=== PATIENT | female | born 1980 | race Caucasian/White ===

== ENCOUNTER 2018-09-27 11:49 | Day surgery (SDC) | payer OTHER ==
[2018-09-27] VITALS (22 sets, daily range): BP systolic 119–141; BP diastolic 59–84; PULSE 67–97; RESP 14–24; Ht 165.1 cm; Wt 70.1 kg
[~2018-09-27] VITALS: Ht 165.1 cm; Wt 70.1 kg
[~2018-09-27 11:49] MED LIST: CEFAZOLIN 2 GM/50 ML (PMX) 50 ML IVPB SCH; HC1C30 TOP; PRED20TA PO; SOD CHLORIDE 0.9% 1,000 ML IV SCH
[2018-09-27] MEDS ORDERED: BUSP5TAB2 PO (12:04)
--- NOTE | 2018-09-27 13:09 | PREAC ---
Date/Time of Note Date/Time of Note DATE: 09/27/18 TIME: 13:07 Anesthesia Eval and Record Evaluation Time Pre-Procedure Interview DATE: 09/27/18 TIME: 13:07 Age 38 Sex female NPO: 8 hrs Preoperative diagnosis GALLSTONES Planned procedure LAP. POSSIBLE OPEN CHOLECYSTECTOMY Past Medical History Past Medical History: Includes Endo: Diabetes Pulm: Smoking Hx (SMOKES 6-7 CIGS/ DAY LAST SMOKED TODAY) Neuro: Peripheral neuropathy (TAKES GABAPENTIN) Psych: Depression, Anxiety Surgery & Anesthesia Issues Hx of PONV Meds Anticoagulation: No Beta Gucci within 24 hr: No Reason Beta Gucci not given: Pt. not on B-Gucci Reported Medications Buspirone Hcl* (Buspirone Hcl*) 5 Mg Tab, 5 MG PO QHS, TAB 09/27/18 Discontinued Scripts Hydrocortisone* Topical (Hydrocortisone* Topical) 1%-28.35 Gm Cream..g., 1 APPLIC TOP Q6 PRN for ITCHING, #1 TUB Prov:MEGHNA LALA 05/14/15 Prednisone* (Prednisone*) 20 Mg Tab, 40 MG PO DAILY for 4 Days, TAB Prov:MEGHNA LALA 05/14/15 Current Medications Cefazolin Sodium/ Dextrose 50 ml @ 100 mls/hr PREOP IVPB ; Start 09/27/18 at 06:00; Stop 09/27/18 at 17:00 Sodium Chloride 1,000 ml @ 75 mls/hr [id number] IV ; Start 09/27/18 at 06:00; Stop 09/27/18 at 17:00 Meds reviewed: Yes Allergies Coded Allergies: No Known Allergy (Unverified , 09/27/18) Allergies Reviewed: Yes Labs/Studies Labs Reviewed: Reviewed by anesthesiologist test: Negative (SERUM HCG NEGATIVE) Studies: ECG Pre-procedure Exam Airway: Adequate mouth opening, Adequate thyromental dist Mallampati: Mallampati II Teeth: Abnormal (UPPER AND LOWER DENTURES ) Lung: Normal Heart: Normal ASA Physical Status ASA physical status: 2 Emergency: None Planned Anesthetic General/MAC: ETT Nerve block: TAP (bilateral) Planned Pain Management Single shot nerve block, Parenteral pain med, Local by surgeon Pre-operative Attestations Prior to commencing anesthesia and surgery, the patient was re-evaluated, there was verification of: *The patient's identity *The results of appropriate recent lab work and preoperative vital signs *The above evaluation not changing prior to induction *Anesthetic plan, risk benefits, alternative and complications discussed with patient/family; questions answered; patient/family understands, accepts and wishes to proceed. ROSALIO SANABRIA Sep 27, 2018 13:09
[2018-09-27] MEDS ORDERED: BUSP10TA2 PO (13:10)
[2018-09-27] MEDS ORDERED: GLIP5TAB13 PO (13:11)
[2018-09-27] MEDS ORDERED: METF500T24 PO (13:11)
[2018-09-27] MEDS ORDERED: GABA100C14 PO (13:12)
--- NOTE | 2018-09-27 14:26 | HPN ---
Date/Time of Note Date/Time of Note DATE: 09/27/18 TIME: 14:26 Interval H&P Admission Note Pt. seen H&P reviewed: No system changes JESSIE LANDRUM MD Sep 27, 2018 14:26
[2018-09-27] MEDS ORDERED: METOCLOPRAMIDE 10 MG INJ IV PRN (14:30)
[2018-09-27] MEDS ORDERED: ONDANSETRON 4 MG INJ IV PRN ×2 (14:30→16:30)
[2018-09-27] MEDS ORDERED: MEPERIDINE 25 MG INJ IV PRN (14:30)
[2018-09-27] MEDS ORDERED: LORAZEPAM 2 MG INJ IV PRN (14:30)
[2018-09-27] MEDS ORDERED: DIPHENHYDRAMINE 50 MG INJ IV PRN (14:30)
[2018-09-27] MEDS ORDERED: HYDROmorphONE 1 MG/5 ML IV SYRINGE IV PRN (14:30)
[2018-09-27] MEDS ORDERED: TRIMETHOBENZAMIDE 100 MG/ML VIAL IM PRN (14:30)
[2018-09-27] MEDS ORDERED: PROCHLORPERAZINE 10 MG INJ IV PRN (14:30)
[2018-09-27] MEDS ORDERED: HALOPERIDOL 5 MG INJ IV PRN (14:30)
[2018-09-27] MEDS ORDERED: BUPIVACAINE 0.5%/EPI (SDV) 30 ML INJ ONE (14:48)
[2018-09-27] MEDS ORDERED: PROPOFOL 20 ML ONE (14:59)
[2018-09-27] MEDS ORDERED: LIDOCAINE 2% (SDV) 5 ML INJ ONE (14:59)
[2018-09-27] MEDS ORDERED: MIDAZOLAM 1 MG/ML 2 ML INJ ONE ×2 (14:59→16:42)
[2018-09-27] MEDS ORDERED: ROCURONIUM 50 MG INJ ONE (14:59)
[2018-09-27] MEDS ORDERED: ROPIVACAINE 0.5 % 30 ML VIAL ONE (15:02)
[2018-09-27] MEDS ORDERED: DEXAMETHASONE 4 MG/ML 5 ML INJ ONE (15:11)
[2018-09-27] MEDS ORDERED: ONDANSETRON 4 MG INJ ONE (15:11)
[2018-09-27] MEDS ORDERED: FAMOTIDINE 20 MG INJ ONE (15:11)
[2018-09-27] MEDS ORDERED: CEFAZOLIN 1 GM INJ ONE (15:12)
[2018-09-27] MEDS ORDERED: IBUPROFEN 600 MG TAB PO PRN (16:30)
[2018-09-27] MEDS ORDERED: morphine 2 MG INJ IV PRN (16:30)
[2018-09-27] MEDS ORDERED: HYDROCODONE/APAP (5/325) TAB PO PRN ×2 (16:30)
--- NOTE | 2018-09-27 16:35 | OPR ---
Date/Time of Note Date/Time of Note DATE: 09/27/18 TIME: 16:25 Operative Report Procedure Date: Sep 27, 2018 Preoperative Diagnosis Cholelithiasis/chronic cholecystitis Postoperative Diagnosis 1. Cholelithiasis/chronic cholecystitis 2. Peritoneal adhesions Operation/Procedure Performed 1. Laparoscopic cholecystectomy 2. Laparoscopic lysis of adhesions Surgeon see signature line Lion Tamer None Anesthesia Type: general Anesthesiologist: ALEX HERNADEZ DO Estimated Blood Loss: 10 - 50 ml's Transfusion none Specimen Gallbladder Grafts/Implants none Complications none Pt Condition Post Procedure: stable Disposition: PACU Indications The patient is a 38-year-old female who presented to the office with a 2-year history of intermittent right upper quadrant abdominal pain. The patient had clinical signs and symptoms of biliary colic and chronic cholecystitis which was confirmed via an ultrasound which showed gallstones without gallbladder wall thickening or pericholecystic fluid. The patient was scheduled for laparoscopic cholecystectomy; possible open as definitive treatment to prevent further sequelae of gallstone disease which include but are not limited to: Gangrenous cholecystitis, choledocholithiasis, gallstone pancreatitis, ascending cholangi tis, etc. All risks and benefits of the procedure including but not limited to: Wound infection, excessive bleeding, common bile duct injury, postoperative biliary leak, retained common bile duct stone, injury to intra-abdominal organs, conversion to open procedure, possible need for subsequent surgeries, etc. were all explained to the patient in full detail. She fully understood and wished to proceed with the procedure. Informed consent was therefore obtained. Procedure Description The patient was brought to the operating room and placed supine on the operating table. Bilateral sequential compression devices were placed on both lower extremities. A dose of broad-spectrum perioperative intravenous antibiotics was given. After the induction of smooth general endotracheal anesthesia the patient's abdomen was prepped and draped in the standard surgical fashion. After performance of the surgical timeout a 5 mm incision was made in the inferior umbilicus and a Veress needle was used to access the intra-abdominal cavity atraumatically. Pneumoperitoneum was then obtained and the Veress needle was exchanged for a 5 mm trocar through which a 5 mm laparoscope was placed. Diagnostic laparoscopy showed adhesions of the right colon in the area of our most lateral right-sided port site. Under direct vision a 12 mm port was placed in the sub-xiphoid region and a laparoscopic lysis of adhesions were performed taking down the adhesions of the right colon so we could place our lateral most port site. Two further working ports were then placed, they were 5 mm ports in the right upper quadrant. All port sites were anesthetized with 0.5% Marcaine with epinephrine prior to incision. Using atraumatic graspers the gallbladder was grasped and retracted superiorly and laterally exposing the area of Bustamante's pouch. The gallbladder was packed with stones making grasping extremely difficult. Dissection was done along the medial and lateral attachments of the gallbladder to the liver bed in order to gain more mobility and better exposure. There was a lot of dense scarring of the gallbladder to the liver bed. Dissection was then begun in the area of the cystic duct structures using a combination of blunt dissection and hook electrocautery. There was a lot of dense scar tissue and adhesions in this area and tedious dissection was done in order to safely dissect. After much tedious dissection, the cystic duct was identified as it entered straight into the neck of the gallbladder. It was dissected free of surrounding tissues and clipped proximally and distally x 3 and transected using EndoShears. Dissection was then continued posteriorly. There were 2 tubular structures identified in the course of posterior dissection, most likely accessory vessels. They were clipped distally and transected proximally using the hook electrocautery. The cystic artery was identified posterior and medial to the cystic duct. It was dissected free of surrounding tissues, clipped proximally and transected distally using the hook electrocautery. The gallbladder was then dissected off the liver bed using electrocautery. Again, there was dense chronic adhesions and fibrosis of the gallbladder to the liver bed. Once completely free the gallbladder was placed in an Endo Catch bag and withdrawn through the subxiphoid port site and passed off the field as specimen. Hemostasis was then inspected for and noted to be adeq uate. The abdomen was then irrigated with several liters of warm normal saline and the irrigant returned crystal clear. The fascia of the subxiphoid port site was then reapproximated using a yassine-close device. Pneumoperitoneum was then released and all remaining trochars were withdrawn under direct vision. The subcutaneous tissues were irrigated with more warm normal saline. The skin was then reapproximated using 4-0 Monocryl sutures in subcuticular fashion. The incisions were cleaned and Dermabond was applied to the incisions. A tap block was then performed by the anesthesiologist and will be documented separately by him. The patient was then awoken from anesthesia and transported to the recovery room in stable condition. All counts were correct at the end of the case x 2. JESSIE LANDRUM MD Sep 27, 2018 16:35
[2018-09-27] MEDS ORDERED: FENTAnyl 50 MCG/ML VIAL ONE (16:42)
--- NOTE | 2018-09-27 17:02 | PAC ---
Date/Time of Note Date/Time of Note DATE: 09/27/18 TIME: 17:02 Post-Anesthesia Notes Post-Anesthesia Note Last documented vital signs Vital Signs Date Temp Pulse Resp B/P (MAP) Pulse Ox O2 O2 Flow FiO2 Time Delivery Rate 09/27/18 98.0 95 18 128/70 95 1702 09/27/18 67 16 120/59 100 13:18 (79) Activity: WNL Respiratory function: WNL Cardiovascular function: WNL Mental status: Baseline Pain reasonably controlled: Yes Hydration appropriate: Yes Nausea/Vomiting absent: Yes ALEX HERNADEZ DO Sep 27, 2018 17:02
[2018-09-27] MEDS: HYDROmorphONE 1 MG/5 ML IV SYRINGE IV PRN ×2 (17:28→17:41)
[2018-09-27] MEDS ORDERED: INSULIN REGULAR, HUMAN 100 UNIT/1 ML 3ML VIAL SC ONE (18:30)
== END 2018-09-27 19:05 | disposition home or self-care (01) ==
LOC: SDS 11:49
PROVIDERS: ATTEND Surgery
DX: K80.10 Calculus of gallbladder with chronic cholecystitis without obstruction (principal); E11.9 Type 2 diabetes mellitus without complications; Z87.891 Personal history of nicotine dependence
CPT/HCPCS: 47562; 82962; 84703; 88304; J0690; J1100; J1170; J1815; J2175; J2250; J2405; J2765; J2795; J3010; Z7512; Z7610